=== PATIENT | female | born 1990 | race Caucasian/White ===

== ENCOUNTER 2016-10-20 18:19 | Emergency (ER) | payer OTHER ==
[~2016-10-20] VITALS: Ht 172.7 cm; Wt 65.2 kg
[~2016-10-20 18:19] MED LIST: BCPILLS PO; DICY10CA55 PO; LORA5TAB3 PO; MOME50SP5 NAE; ONDA4TAB4 PO; PROM25TA9 PO
[2016-10-20 18:25] VITALS: TEMP 36.9; Ht 172.7 cm; Wt 65.2 kg
[2016-10-20] MEDS ORDERED: ONDANSETRON INJ 2 MG/ML 2 ML VIAL IV STA (18:54)
[2016-10-20] MEDS ORDERED: FAMOTIDINE 20MG/102 ML D5W IV STA (18:54)
[2016-10-20] MEDS ORDERED: SODIUM CHLORIDE 0.9% 1000ML 2,000 ML IV STA (18:54)
[2016-10-20] MEDS ORDERED: PANTOprazole INJ 40 MG in SYRINGE 0 ML IV ONE (19:00)
[2016-10-20 19:04] LABS: BASO % 0.4 %; BASO ABS # 0.03 K/uL (0-0.2); COMPLETE YES; EOS % 0.4 %; HEMATOCRIT 43.1 % (37-47); IG% 0.1 %; LYMPH % 15.4 %; LYMPH ABS # 1.29 K/uL (1.2-3.4); MEAN CELL VOLUME 86.2 fL (80-100); MEAN CORPUSCULAR HEMOGLOBIN 29.4 pg (25-34); MEAN CORPUSCULAR HGB CONC 34.1 g/dl (32-36); MEAN PLATELET VOLUME 11.8 fL (7.4-10.4); MONO % 8.3 %; NEUT % 75.4 %; PLATELET COUNT 212 K/uL (130-400); WHITE BLOOD COUNT 8.36 K/uL (4.8-10.8)
--- NOTE | 2016-10-20 19:04 | EMERGENCY ROOM VISIT NOTE ---
History Report prepared by Arthur: Gonzales Bobo Under the Supervision of: Dr. Jun Larios D.O. First contact with patient: 18:49 Chief Complaint: VOMITING Stated Complaint: VOMITING,DIARRHEA,DIZZY,BLOODY BILE,CRAMPING History of Present Illness The patient is a 26 year old female who presents to the Emergency Room with complaints of persistent vomiting that started 6 days ago. The patient also complains of diarrhea, dizziness, abdominal cramping, chills and hot flashes. The patient notes that she has been seeing bloody bile in her vomit, but denies blood in her diarrhea. The patient has had these symptoms before and has a history of pancreatitis. She denies any close contact illness or swelling in her legs. Her menstrual period started today. Source of History: patient Onset: 6 days ago Position: other (global) Timing: other (persistent) Associated Symptoms: + abdominal pain (cramping), + chills, + diarrhea, No hematochezia Note: Other associated symptoms: dizziness, hot flashes, bloody bile in vomit Denies: swelling in legs Review of Systems See HPI for pertinent positives & negatives. A total of 10 systems reviewed and were otherwise negative. Past Medical & Surgical Medical Problems: (1) Asthma, Unspecified (2) Ovarian Cyst Nec/Nos (3) Personal History Of Peptic Ulcer Disease (4) Stomach Ulcer Nos Family History FHx: cancer Heart disease Social History Smoking Status: Never Smoker Alcohol Use: occasionally Marital Status: in relationship Housing Status: lives with significant other Occupation Status: employed Current/Historical Medications Scheduled Omeprazole (Prilosec), 20 MG PO DAILY Ondasetron Odt (Zofran Odt), 4 MG SL Q6H Scheduled PRN Dicyclomine Hcl (Bentyl), 10 MG PO for abd pain Loratadine & Pseudoephedrine (Claritin-D 12 Hour), 1 TAB PO Q12 PRN for CONGESTION AND ALLERGIES Mometasone Furoate (Nasonex), 2 SPRAY PEDRO DAILY PRN for ALLERGIC REACTION Ondansetron Tab (Zofran), 4 MG PO Q6 PRN for Nausea Promethazine Hcl (Phenergan), 25 MG PO Q8 PRN for Nausea Allergies Coded Allergies: Sulfa Drugs (Verified Allergy, Unknown, ?, 10/20/16) Morphine (Verified Adverse Reaction, Unknown, anxiety, 10/20/16) Physical Exam Vital Signs Date Time Temp Pulse Resp B/P Pulse Ox O2 Delivery O2 Flow Rate FiO2 10/20/16 21:35 74 16 118/69 97 10/20/16 20:00 74 16 118/74 99 10/20/16 19:25 69 10/20/16 18:25 36.9 123 18 129/61 98 Room Air Physical Exam GENERAL: Patient is awake alert somewhat anxious appearing, does not appear to be in pain. EYES: The conjunctivae are clear. The pupils are round and reactive. EARS, NOSE, MOUTH AND THROAT: The nose is without any evidence of any deformity. Mucous membranes are dry tongue is midline NECK: The neck is nontender and supple. RESPIRATORY: Normal respiratory effort is noted there is no evidence of wheezing rhonchi or rales CARDIOVASCULAR: Regular rate and rhythm noted there no murmurs rubs or gallops normal S1 normal S2 GASTROINTESTINAL: The abdomen is nondistended and soft. There was diffuse tenderness to palpation but no specific guarding or rigidity. Bowel sounds are present in all quadrants. MUSCULOSKELETAL/EXTREMITIES: There is no evidence of gross deformity full range of motion is noted in the hips and shoulders SKIN: There is no obvious evidence of any rash. There are no petechiae, pallor or cyanosis noted. NEUROLOGIC: Patient is awake alert and oriented x3 strength is symmetric patellar reflexes are 2+ bilaterally Medical Decision & Procedures ER Provider Diagnostic Interpretation: X-ray results as stated below per interpretation by me and the radiologist. CHEST AND ABDOMEN 2 VIEWS HISTORY: Generalized abdominal pain. COMPARISON: Chest 12/21/2014. FINDINGS: The lungs are clear. The cardiomediastinal silhouette is within normal limits. There is no pneumoperitoneum or pneumatosis. The bowel gas pattern is unremarkable. No evidence for bowel obstruction. No renal or ureteral calculi. Punctate calcifications within the left deep pelvis likely represent phleboliths. IMPRESSION: No acute cardiopulmonary process. No evidence for bowel obstruction. Electronically signed by: Huang Harp M.D. 10/20/2016 9:32 PM Dictated Date/Time: 10/20/2016 9:29 PM Laboratory Results 10/20/16 18:50 Red Blood Count 5.00, Mean Corpuscular Volume 86.2, Mean Corpuscular Hemoglobin 29.4, Mean Corpuscular Hemoglobin Concent 34.1, Mean Platelet Volume 11.8, Neutrophils (%) (Auto) 75.4, Lymphocytes (%) (Auto) 15.4, Monocytes (%) (Auto) 8.3, Eosinophils (%) (Auto) 0.4, Basophils (%) (Auto) 0.4, Neutrophils # (Auto) 6.31, Lymphocytes # (Auto) 1.29, Monocytes # (Auto) 0.69, Eosinophils # (Auto) 0.03, Basophils # (Auto) 0.03 10/20/16 18:50 Test 10/20/16 18:50 10/20/16 19:10 White Blood Count 8.36 K/uL (4.8-10.8) Red Blood Count 5.00 M/uL (4.2-5.4) Hemoglobin 14.7 g/dL (12.0-16.0) Hematocrit 43.1 % (37-47) Mean Corpuscular Volume 86.2 fL (80-100) Mean Corpuscular Hemoglobin 29.4 pg (25-34) Mean Corpuscular Hemoglobin Concent 34.1 g/dl (32-36) Platelet Count 212 K/uL (130-400) Mean Platelet Volume 11.8 fL (7.4-10.4) Neutrophils (%) (Auto) 75.4 % Lymphocytes (%) (Auto) 15.4 % Monocytes (%) (Auto) 8.3 % Eosinophils (%) (Auto) 0.4 % Basophils (%) (Auto) 0.4 % Neutrophils # (Auto) 6.31 K/uL (1.4-6.5) Lymphocytes # (Auto) 1.29 K/uL (1.2-3.4) Monocytes # (Auto) 0.69 K/uL (0.11-0.59) Eosinophils # (Auto) 0.03 K/uL (0-0.5) Basophils # (Auto) 0.03 K/uL (0-0.2) RDW Standard Deviation 40.9 fL (36.4-46.3) RDW Coefficient of Variation 13.0 % (11.5-14.5) Immature Granulocyte % (Auto) 0.1 % Immature Granulocyte # (Auto) 0.01 K/uL (0.00-0.02) Anion Gap 12.0 mmol/L (3-11) Est Creatinine Clear Calc Drug Dose 93.1 ml/min Estimated GFR () 98.4 Estimated GFR (Non- 84.9 BUN/Creatinine Ratio 15.4 (10-20) Calcium Level 9.6 mg/dl (8.5-10.1) Total Bilirubin 0.5 mg/dl (0.2-1) Direct Bilirubin 0.1 mg/dl (0-0.2) Aspartate Amino Transf (AST/SGOT) 13 U/L (15-37) Alanine Aminotransferase (ALT/SGPT) 14 U/L (12-78) Alkaline Phosphatase 60 U/L (45-117) Total Protein 8.3 gm/dl (6.4-8.2) Albumin 4.5 gm/dl (3.4-5.0) Lipase 173 U/L (73-393) Human Chorionic Gonadotropin, Qual NEG (NEG) Urine Color DK YELLOW Urine Appearance CLOUDY (CLEAR) Urine pH 5.0 (4.5-7.5) Urine Specific [place] 1.041 (1.000-1.030) Urine Protein NEG (NEG) Urine Glucose (UA) NEG (NEG) Urine Ketones 3+ (NEG) Urine Occult Blood TRACE (NEG) Urine Nitrite NEG (NEG) Urine Bilirubin NEG (NEG) Urine Urobilinogen NEG (NEG) Urine Leukocyte Esterase NEG (NEG) Urine WBC (Auto) 1-5 /hpf (0-5) Urine RBC (Auto) 0-4 /hpf (0-4) Urine Hyaline Casts (Auto) 1-5 /lpf (0-5) Urine Epithelial Cells (Auto) >30 /lpf (0-5) Urine Bacteria (Auto) NEG (NEG) Urine Mucus PRESENT (NONE PRSENT) Laboratory results per my review. Medications Administered Medications (Trade) Dose Ordered Sig/Shelia Route Start Time Stop Time Status Last Admin Dose Admin Ondansetron HCl 4 mg 4 mg NOW STAT IV 10/20/16 18:54 10/20/16 18:56 DC 10/20/16 19:13 4 MG Sodium Chloride 2,000 ml @ 999 mls/hr Q2H1M STAT IV 10/20/16 18:54 10/20/16 20:54 DC 10/20/16 19:13 999 MLS/HR Pantoprazole Sodium/Syringe (Protonix Inj/ Syringe) 10 ml @ 5 mls/min NOW ONCE IV 10/20/16 19:00 10/20/16 19:01 DC 10/20/16 19:48 5 MLS/MIN Famotidine (Pepcid 20mg/100 ml) 20 mg ONE STAT IV 10/20/16 18:54 10/20/16 18:56 DC 10/20/16 19:13 20 MG ED Course 1854: The patient was evaluated in room C10. A complete history and physical examination were performed. 185: Ordered Famotidine 20 mg IV, NSS 2000 ml @ 999 mls/hr IV, Zofran Inj 4 mg IV. 1899: Ordered Pantoprazole Sodium 40 mg/ Syringe 10 ml @ 5 mls/min IV. 2214: Ordered Ondansetron HCl 1 homepack PO. 2229: Upon reevaluation, the patient is resting. I discussed the results and treatment plan with her. She verbalized agreement of the treatment plan. The patient was discharged home. Medical Decision Prior records/ancillary studies reviewed. Triage Nursing notes reviewed. The patient's history was concerning for nausea, vomiting, diarrhea, and abdominal pain. Differential diagnosis: Etiologies such as gastroenteritis, food borne illness, infections, appendicitis , diverticulitis, inflammatory bowel disease, obstruction, GI bleed, biliary pathology, as well as others were entertained. The patient is a 26-year-old female who presented to the emergency department for an evaluation of nausea vomiting and abdominal pain. The patient had diffuse tenderness but did not have a physical exam consistent with an acute surgical abdomen. Her white blood cell count was not found to be elevated. She was found to be dehydrated by noting ketones in her urinalysis. The patient was treated with IV fluids and IV antiemetics in the emergency department. She doesn 't a remote history of pancreatitis as well and was given IV proton pump inhibitors. I discussed patient's laboratory and radiographic studies with her. She was encouraged to rest and avoid any strenuous activity. She was encouraged to continue drinking plenty clear liquids including Pedialyte and Gatorade. She was also encouraged to follow-up with her family doctor for reevaluation this is possible but return to the emergency apartment immediately if symptoms change worsen or the need arises. Impression Primary Impression: Nausea, vomiting, and diarrhea Additional Impression: Dehydration Scribe Attestation The scribe's documentation has been prepared under my direction and personally reviewed by me in its entirety. I confirm that the note above accurately reflects all work, treatment, procedures, and medical decision making performed by me. Departure Information Dispostion Home / Self-Care Prescriptions Ondasetron Odt (ZOFRAN ODT) 4 Mg Tab 4 MG SL Q6H for Nausea, #15 TAB Prov: Jun Larios, DO 10/20/16 Omeprazole (PRILOSEC) 20 Mg Cap 20 MG PO DAILY, #30 CAP Prov: Jun Larios, DO 10/20/16 Referrals Eveline Monique M.D. (PCP) Forms HOME CARE DOCUMENTATION FORM, IMPORTANT VISIT INFORMATION Patient Instructions A Signature Page, My [facility] Additional Instructions Drink plenty of clear liquids including Gatorade and Pedialyte. Continue all medications as prescribed. Follow-up with your family this week for reevaluation. Continue using Tylenol as directed for pain.
[2016-10-20 19:21] LABS: BUN/CREATININE RATIO 15.4 (10-20); CALCIUM 9.6 mg/dl (8.5-10.1); CREATININE 0.94 mg/dl (0.60-1.20); POTASSIUM 3.7 mmol/L (3.5-5.1)
[2016-10-20 19:22] LABS: URINE APPEARANCE CLOUDY (CLEAR); URINE BILIRUBIN NEG (NEG); URINE COLOR DK YELLOW; URINE EPITHELIAL CELL AUTO >30 /lpf (0-5); URINE NITRITE NEG (NEG); URINE SPECIFIC GRAVITY 1.041 (1.000-1.030); UROBILINOGEN NEG (NEG)
[2016-10-20 19:24] LABS: MANUAL MICROSCOPIC REQUIRED? NO; REVIEW REQ? YES
[2016-10-20 19:37] LABS: URINE MUCUS PRESENT (NONE PRSENT)
[2016-10-20 19:39] LABS: PREG INTERNAL NEGATIVE QC NEG CLEAR BACKGROUND; PREG INTERNAL POSITIVE QC POS CONTROL LINE
--- NOTE | 2016-10-20 21:34 | DIAGNOSTIC IMAGING REPORT ---
CHEST AND ABDOMEN 2 VIEWS HISTORY: Generalized abdominal pain. COMPARISON: Chest 12/21/2014. FINDINGS: The lungs are clear. The cardiomediastinal silhouette is within normal limits. There is no pneumoperitoneum or pneumatosis. The bowel gas pattern is unremarkable. No evidence for bowel obstruction. No renal or ureteral calculi. Punctate calcifications within the left deep pelvis likely represent phleboliths. IMPRESSION: No acute cardiopulmonary process. No evidence for bowel obstruction. Electronically signed by: Huang Harp M.D. 10/20/2016 9:32 PM Dictated Date/Time: 10/20/2016 9:29 PM
[2016-10-20] MEDS ORDERED: ONDANSETRON HOME PACK 4MG OD TAB PO ONE (22:15)
[2016-10-20] MEDS ORDERED: OMEP20CA9 PO (22:16)
[2016-10-20] MEDS ORDERED: ONDA4TAB10 SL (22:17)
[2016-10-20 22:31] VITALS: BP 129/71; PULSE 60; O2SAT 98
== END 2016-10-20 22:35 | disposition home or self-care (01) ==
LOC: C.EDB 18:20 → C.EDC 22:35
DX: E86.0 Dehydration (principal); R11.2 Nausea with vomiting, unspecified; R19.7 Diarrhea, unspecified; J45.909 Unspecified asthma, uncomplicated; N83.209 Unspecified ovarian cyst, unspecified side; Z87.11 Personal history of peptic ulcer disease; Z88.2 Allergy status to sulfonamides; Z88.5 Allergy status to narcotic agent; Z80.9 Family history of malignant neoplasm, unspecified; Z82.49 Family history of ischemic heart disease and other diseases of the circulatory system